=== PATIENT | male | born 1975 | race African-American/Black ===

== ENCOUNTER 2018-07-31 22:47 | Emergency (ER) | payer BC, MEDICAID ==
[~2018-07-31] VITALS: Ht 177.8 cm; Wt 79.1 kg
[~2018-07-31 22:47] MED LIST: INSU100I18; METF-162; OMEP20TA62 PO
[2018-07-31 22:48] VITALS: BP 158/90
[2018-07-31] MEDS ORDERED: KETOROLAC 30 MG/1 ML IM ONE (23:00)
[2018-07-31] MEDS ORDERED: KETOROLAC 30 MG/1 ML ONE (23:26)
--- NOTE | 2018-07-31 23:30 | NUR ---
PT MEDICATED PER EMAR. 5 RIGHTS ADDRESSED.
--- NOTE | 2018-08-01 00:17 | NUR ---
DC EDUCATION PROVIDED, PT DEMONSTRATES UNDERSTANDING. PT AMBULATED STEADILY TO DC WITH RN
== END 2018-08-01 00:19 | disposition home or self-care (01) ==
LOC: ED 08-01 00:08
DX: M76.62 Achilles tendinitis, left leg (principal); M25.562 Pain in left knee
CPT/HCPCS: 73564; 73610; 96372; 99283; J1885